=== PATIENT | female | born 1985 | race Hispanic/Latino ===

== ENCOUNTER 2016-12-25 15:16 | Inpatient (IN) | payer BC ==
--- OUTSIDE RECORDS SUMMARY | 2016-12-25 15:20 | XMS REPORT | Continuity of Care Document ---
:1985 Author Organization [facility] ([facility]) Address [address] [place] [address] Phone [phone] Care Team Providers Name Role Phone Carrol Kurtz Primary Care Provider [phone] Source Comments This disclosure is being made pursuant to the Care Everywhere program, applicable federal and state laws, and may not contain all informaitonavailable regarding this patient.[facility] ([facility]) Active Allergies and Adverse Reactions Allergen Noted Date Severity Reactions Comments Erythromycin Urticaria (Hives) childhood reaction Erythromycin 02/11/2015 Rash Current Medications Not on file Active Problems Problem Noted Date Threatened premature labor, unspecified as to episode of care 02/11/2015 Social History Tobacco Use Types Packs/Day Years Used Date Former Smoker 0.5 3 Quit: 05/03/2013 Smokeless Tobacco: Never Used Tobacco Cessation:Counseling Given: No Comments: Last Filed Vital Signs Vital Sign Reading Time Taken Blood Pressure 142/83 02/22/2015 8:05 AM CDT Pulse 98 02/22/2015 8:05 AM CDT Temperature 36.5 C (97.7 F) 02/22/2015 8:05 AM CDT Respiratory Rate 18 02/22/2015 8:05 AM CDT Height 1.727 m (5' 8") 02/11/2015 5:47 PM CDT Weight 107.956 kg (238 lb) 02/11/2015 5:47 PM CDT Body Mass Index 36.2 02/11/2015 5:47 PM CDT Oxygen Saturation 97% 02/22/2015 8:05 AM CDT Plan of Care Health Maintenance Due Date Last Done Comments Hepatitis B Vaccine (1 of 3 - Primary Series) 1985 Tdap Vaccine 02/13/1995 Lipid Disorder Screening 02/13/2002 MMR Vaccine 02/13/2002 Td Vaccine 02/13/2002 Varicella Vaccine (1 of 2 - Adult - No Evidence of 02/13/2002 Immunity) Cervical Cancer Screening 02/13/2014 Influenza Vaccine: Seasonal (#1) 02/21/2016 Results from Last 3 Months Not on file
[2016-12-25] MEDS ORDERED: INSULIN REGULAR HUMAN REC 100 UNITS in NORMAL SALINE 100 ML IV PRN (15:38)
[2016-12-25] MEDS ORDERED: ONDANSETRON HCL/PF 2 MG/ML VIAL IV PRN ×2 (15:38→16:03)
[2016-12-25] MEDS ORDERED: OXYTOCIN/DEXTROSE 5%-WATER 30 UNITS/500 ML BAG IV ONE ×2 (15:38→21:46)
[2016-12-25] MEDS ORDERED: RINGERS SOLUTION,LACTATED 1,000 ML IV ONE (15:38)
[2016-12-25] MEDS ORDERED: DEXTROSE 5%-LACTATED RINGERS 1,000 ML IV PRN (15:38)
[2016-12-25] MEDS ORDERED: LIDOCAINE HCL 50 ML VIAL PERI PRN (15:38)
[2016-12-25 15:56] LABS: Hematocrit 30.7 % (37.0-47.0); Hemoglobin 10.5 gm/dL (12.5-16.0); Mean Cell Volume 85.5 fl (78-100); Mean Corpuscular Hemoglobin 29.2 pg (27-31); Mean Corpuscular Hgb Conc 34.2 g/dl (32-36); Mean Platelet Volume 10.5 fl (6.0-9.5); Neutrophil # 7.4 K/mm3 (1.3-6.0); Neutrophil % 80.8 % (42-75.0); Platelet Count 124 K/mm3 (150-450); Red Blood Count 3.59 M/mm3 (4.2-5.4); Red Cell Distribution Width 14.7 % (11.5-14.0); White Blood Count 9.2 K/mm3 (4.0-10.5)
[2016-12-25] MEDS ORDERED: NALOXONE HCL 1 MG/1 ML SYRG IV PRN (16:03)
[2016-12-25] MEDS ORDERED: BUPIVACAINE HCL/0.9 % NACL/PF 250 ML EP PRN (16:03)
[2016-12-25] MEDS ORDERED: fentaNYL CITRATE/PF 50 MCG/ML AMPUL IT SCH (16:15)
--- NOTE | 2016-12-25 16:32 | OR ---
Anesthesia Procedure Note - Anesthesia Procedure Note Narrative: Vital Signs - Last Taken Temp 36.9 C 12/25/16 16:05 Pulse 94 12/25/16 16:05 Resp 16 12/25/16 16:05 BP 121/66 12/25/16 16:05 Pulse Ox 98 12/25/16 16:05 12/25/16 16:31 ANESTHESIA PROCEDURE NOTE Date of Procedure: 12/25/2016 Time of procedure: 1615. Performed by: Rodney Thomas CRNA Sheriff'S Officer: None. Preprocedure diagnosis: Active labor. Post procedure diagnosis: Same. Procedure: Insertion of labor epidural. Indications: The patient is a 31 -year-old multigravida female in active labor requesting labor epidural for pain management. Findings: See below. Details of the procedure: The patient was placed in a sitting position. Back was prepped with DuraPrep. Patient was then draped in a sterile fashion. Lidocaine 1% was infiltrated to the skin and subcutaneous tissues at the level of the L3 4 interspace. The epidural space was identified using a 18-gauge Tuohy needle with [id number] technique. 20 mcg fentanyl was given intrathecally using a 27 ga. spinal needle. Epidural catheter was inserted without difficulty. Negative test dose was elicited using 5 mL of 1.5% preservative-free lidocaine plus epinephrine 1 200,000. The epidural catheter was then taped and secured in place. EBL: Minimal. Fluids: N/A. Specimen: N/A. Post procedure condition: The patient tolerated the procedure well. No complications were noted. Thank you for this consultation. Rodriguez CRNA
--- NOTE | 2016-12-25 17:50 | PN ---
Progess Note - Interim Narrative: 12/25/16 17:45 Patient comfortable with epidural Vital signs stable. Pitocin at 6 mu/min. Blood sugar 97 FHT:150 baseline, reassuring Contractions q 5 min Cervix: 8/90/-2 Impression: Intrauterine at 37 weeks prolonged latent phase of labor, prolonged ruptured membranes, insulin-dependent gestational diabetic-stable Plan: Will increase Pitocin to 12 mU/m
--- NOTE | 2016-12-25 21:13 | OR ---
Operative Report - Dictated Report Narrative: Spontaneous vaginal delivery of viable female at 2003 on 12/25/2016 with Apgars 8 and 9, weighing 3182 g an LCEMENTINA position. Cord clamping delayed approximately 1 minute Placenta delivered complete, intact, with three vessel cord Estimated blood loss: less than 50 ml Lacerations: None History for MU Definition: * The number of deliveries resulting in a live the patient experienced prior to current hospitalization * The previous delivery of live twins or any live multiple gestation is considered one live event. *If primagravida or nulliparous is documented select zero for the number of previous live births. Live Events: 1
[2016-12-25] MEDS ORDERED: HYDROCORTISONE 30 APPL TUBE TP PRN (21:46)
[2016-12-25] MEDS ORDERED: BENZOCAINE/MENTHOL 81 SPRAY CAN TP PRN (21:46)
[2016-12-25] MEDS ORDERED: BISACODYL 10 MG SUPP.RECT RC PRN (21:46)
[2016-12-25] MEDS ORDERED: GLYCERIN/WITCH HAZEL LEAF 40 APPL BOX TP PRN (21:46)
[2016-12-25] MEDS ORDERED: SENNOSIDES 8.6 MG TABLET PO PRN (21:46)
[2016-12-25] MEDS ORDERED: oxyCODONE HCL/ACETAMINOPHEN 1 TAB TABLET PO PRN ×2 (21:46)
[2016-12-25] MEDS: IBUPROFEN 800 MG TABLET PO PRN (22:09)
[2016-12-26] MEDS: DOCUSATE SODIUM 100 MG CAPSULE PO SCH ×2 (08:43→20:10)
[2016-12-26] MEDS: IBUPROFEN 800 MG TABLET PO PRN (08:43)
[2016-12-26] MEDS: ASCORBIC ACID 500 MG TABLET PO SCH (08:43)
[2016-12-26] MEDS: FERROUS SULFATE 325 MG TABLET PO SCH (08:43)
[2016-12-26] MEDS: PRENATAL VIT#96/FERROUS FUM/FA 1 TAB TABLET PO SCH (08:44)
--- NOTE | 2016-12-26 12:52 | PN ---
Subjective - Date and Time Seen Date: 12/26/16 Time: 12:51 Objective - Vitals Vitals: Last Vital Signs Temp 36.3 C L 12/26/16 11:35 Pulse 71 12/26/16 11:35 Resp 16 12/26/16 11:35 BP 121/73 12/26/16 11:35 Pulse Ox 97 12/26/16 11:35 Patient denies complaints. Fasting and one-hour postprandial blood sugars within normal limits. Lochia wnl Abdomen - soft, nontender Uterus - firm, at umbilicus - 1 No calf tenderness Impression: day #1 - s/p spontaneous vaginal delivery. Gestational diabetes resolved. Plan: Continue routine care - Abnormal Lab Findings Abnormal Lab Findings: Abnormal Lab Results 12/25/16 Range/Units 15:50 RBC 3.59 L (4.2-5.4) M/mm3 Hgb 10.5 L (12.5-16.0) gm/dL Hct 30.7 L (37.0-47.0) % RDW 14.7 H (11.5-14.0) % Plt Count 124 L (150-450) K/mm3 MPV 10.5 H (6.0-9.5) fl Immature Gran % (Auto) 0.80 H (0.001-0.429) % Immature Gran # (Auto) 0.07 H (0.000-0.0310) K/mm3 Neutrophils % 80.8 H (42-75.0) % Lymphocytes % 12.6 L (20-51) % Neutrophils # 7.4 H (1.3-6.0) K/mm3 Lymphocytes # 1.2 L (1.5-3.5) k/mm3 Cauti Physician Documentation - Urinary Catheter Management Uretheral (Hernandez) Date of Insertion: 12/25/16 Time of Insertion: 16:50
--- NOTE | 2016-12-27 05:54 | PN ---
Subjective - Date and Time Seen Date: 12/27/16 Time: 05:53 Objective - Vitals Vitals: Last Vital Signs Temp 36.0 C L 12/27/16 03:49 Pulse 80 12/27/16 03:49 Resp 18 12/27/16 03:49 BP 120/79 12/27/16 03:49 Pulse Ox 98 12/27/16 03:49 Patient denies complaints. Lochia wnl Abdomen - soft, nontender Uterus - firm, at umbilicus - 2 No calf tenderness Impression: day #2 - s/p spontaneous vaginal delivery. Gestational diabetes resolved Plan: Routine discharge instructions. Patient to check fasting and one-hour postprandial blood sugar the day before her visit. Cauti Physician Documentation - Urinary Catheter Management Uretheral (Hernandez) Date of Insertion: 12/25/16 Time of Insertion: 16:50
[2016-12-27] MEDS: FERROUS SULFATE 325 MG TABLET PO SCH (08:37)
[2016-12-27] MEDS: ASCORBIC ACID 500 MG TABLET PO SCH (08:38)
[2016-12-27] MEDS: DOCUSATE SODIUM 100 MG CAPSULE PO SCH (08:38)
[2016-12-27] MEDS: PRENATAL VIT#96/FERROUS FUM/FA 1 TAB TABLET PO SCH (08:38)
[2016-12-27 09:33] VITALS: BP 118/61
== END 2016-12-27 11:30 | disposition home or self-care (01) | DRG 775 ==
LOC: OB 15:16
PROVIDERS: ADMIT Obstetrics & Gynecology; ATTEND Obstetrics & Gynecology
PROC: 10E0XZZ Delivery of Products of Conception, External Approach (ICD-10-PCS; principal; 2016-12-25)
PROC: 4A1HXCZ Monitoring of Products of Conception, Cardiac Rate, External Approach (ICD-10-PCS; 2016-12-25)
PROC: 3E0S3CZ (ICD-10-PCS; 2016-12-25)
DX: O24.424 Gestational diabetes mellitus in childbirth, insulin controlled (principal); O99.12 Other diseases of the blood and blood-forming organs and certain disorders involving the immune mechanism complicating childbirth; O99.02 Anemia complicating childbirth; D50.8 Other iron deficiency anemias; D69.6 Thrombocytopenia, unspecified; O63.0 Prolonged first stage (of labor); Z3A.37 37 weeks gestation of pregnancy; Z37.0 Single live birth